=== PATIENT | female | born 1985 | race Caucasian/White ===

== ENCOUNTER 2022-06-02 00:50 | Inpatient (IN) | payer OTHER ==
[2022-06-02 01:57] LABS: BASO % 0.9 % (0-2.0); EOS % 1.6 % (0-4.5); HEMOGLOBIN 11.4 GM/dL (10.7-15.3); LYMPH % 28.5 % (8-40); MCH 26.9 pg (25.7-33.7); MCHC 34.6 g/dl (32.0-36.0); MEAN CELL VOLUME 77.6 fl (80-96); MEAN PLT VOLUME 8.5 fl (7.5-11.1); MONO % 6.6 % (3.8-10.2); NEUT % 62.4 % (42.8-82.8); PLATELET COUNT 374 10^3/uL (134-434); RBC 4.25 M/mm3 (3.60-5.2); RDW 14.6 % (11.6-15.6)
[2022-06-02 02:08] VITALS: BMI 25.7
[2022-06-02] MEDS ORDERED: CITRIC ACID/SODIUM CITRATE 30 ML UNIT-DOSE CUP PO ONE (02:08)
[2022-06-02] MEDS ORDERED: ELECTROLYTE-148 SOLN 500 ML IV ONE (02:08)
[2022-06-02] MEDS ORDERED: ELECTROLYTE-148 SOLN 1,000 ML IV SCH (02:15)
[2022-06-02 02:16] LABS: INR 0.95 (0.83-1.09)
[2022-06-02 02:18] LABS: ACTIVATED PTT 26.2 SECONDS (25.2-36.5)
[2022-06-02] MEDS ORDERED: DEXAMETHASONE SOD PHOSPHATE 4 MG/1 ML VIAL ONE (02:32)
[2022-06-02] MEDS ORDERED: KETOROLAC TROMETHAMINE 30 MG/1 ML VIAL ONE (02:32)
[2022-06-02] MEDS ORDERED: morphine SULFATE/PF 1 MG/2 ML (2cc Syringe - QUVA) ONE (02:32)
[2022-06-02] MEDS ORDERED: ONDANSETRON 4 MG/2 ML VIAL ONE (02:32)
[2022-06-02] MEDS ORDERED: FENTANYL CITRATE/PF 50 MCG/ML VIAL ONE (02:32)
[2022-06-02] MEDS ORDERED: IBUPROFEN 800 MG/8 ML IJ IVPB PRN (02:37)
[2022-06-02] MEDS ORDERED: ACETAMINOPHEN 325 MG TABLET (FP) PO PRN (02:37)
[2022-06-02] MEDS ORDERED: SENNOSIDES/DOCUSATE COMBO (SENNA PLUS) TABLET (UD) PO PRN (02:37)
[2022-06-02] MEDS ORDERED: METHYLERGONOVINE MALEATE 0.2 MG/1 ML AMP IM PRN (02:37)
[2022-06-02 02:39] LABS: CALCIUM 9.1 mg/dL (8.5-10.1)
[2022-06-02 02:40] LABS: BLOOD UREA NITROGEN 6.9 mg/dL (7-18)
[2022-06-02 02:43] LABS: CREATININE 0.5 mg/dL (0.55-1.3)
[2022-06-02] MEDS ORDERED: OXYTOCIN 30 UNITS in 0.9% NS 30 UNIT/500 ML INFUS.BAG IVPB ONE (02:43)
[2022-06-02] MEDS ORDERED: OXYTOCIN 20 UNITS in 0.9% NS 20 UNIT/1,000 ML INFUS.BAG IV SCH (02:45)
[2022-06-02] MEDS ORDERED: OXYTOCIN 10 UNITS/ML VIAL ONE ×2 (03:32)
[2022-06-02] MEDS ORDERED: ONDANSETRON 4 MG/2 ML VIAL IVPUSH PRN (03:56)
[2022-06-02] MEDS ORDERED: OXYTOCIN 20 UNITS in 0.9% NS 20 UNIT/1,000 ML INFUS.BAG IV ONE (04:47)
[2022-06-02] MEDS: FERROUS SO4 325 MG TABLET (FP) PO SCH ×2 (10:05→22:42)
[2022-06-02] MEDS: PRENATAL VITAMINS W/ FOLIC ACID TABLET (FP) PO SCH (10:05)
[2022-06-02] MEDS ORDERED: oxyCODONE HCL 5 MG TABLET PO PRN (14:37)
[2022-06-02] MEDS: SIMETHICONE 80 MG TAB.CHEW (FP) PO PRN (22:42)
[2022-06-02] MEDS: IBUPROFEN 600 MG TABLET (FP) PO PRN (22:42)
[2022-06-03] MEDS ORDERED: BISACODYL 10 MG SUPP.RECT RC PRN (02:37)
[2022-06-03] MEDS: IBUPROFEN 600 MG TABLET (FP) PO PRN ×3 (06:20→21:16)
[2022-06-03] MEDS: SIMETHICONE 80 MG TAB.CHEW (FP) PO PRN ×3 (06:20→18:44)
[2022-06-03 07:42] LABS: BASO % 0.7 % (0-2.0); EOS % 1.5 % (0-4.5); HEMATOCRIT 29.9 % (32.4-45.2); HEMOGLOBIN 10.2 GM/dL (10.7-15.3); LYMPH % 26.6 % (8-40); MCH 26.9 pg (25.7-33.7); MCHC 34.1 g/dl (32.0-36.0); MEAN CELL VOLUME 79.1 fl (80-96); MEAN PLT VOLUME 9.1 fl (7.5-11.1); MONO % 6.3 % (3.8-10.2); NEUT % 64.9 % (42.8-82.8); PLATELET COUNT 312 10^3/uL (134-434); RBC 3.77 M/mm3 (3.60-5.2); RDW 14.6 % (11.6-15.6); WHITE BLOOD COUNT 9.6 K/mm3 (4.0-10.0)
[2022-06-03] MEDS: FERROUS SO4 325 MG TABLET (FP) PO SCH ×2 (09:27→21:16)
[2022-06-03] MEDS: PRENATAL VITAMINS W/ FOLIC ACID TABLET (FP) PO SCH (09:27)
[2022-06-03] MEDS: oxyCODONE HCL 5 MG TABLET PO PRN ×2 (11:43→18:44)
[2022-06-03 21:11] VITALS: RESP 18
[2022-06-04] MEDS: SIMETHICONE 80 MG TAB.CHEW (FP) PO PRN (03:45)
[2022-06-04] MEDS: IBUPROFEN 600 MG TABLET (FP) PO PRN ×3 (03:45→23:27)
[2022-06-04] MEDS: FERROUS SO4 325 MG TABLET (FP) PO SCH ×2 (10:03→21:41)
[2022-06-04] MEDS: PRENATAL VITAMINS W/ FOLIC ACID TABLET (FP) PO SCH (10:03)
[2022-06-05 07:44] VITALS: BP 117/72; PULSE 77; TEMP 98.4
[2022-06-05] MEDS: PRENATAL VITAMINS W/ FOLIC ACID TABLET (FP) PO SCH (09:13)
[2022-06-05] MEDS: FERROUS SO4 325 MG TABLET (FP) PO SCH (09:13)
== END 2022-06-05 12:19 | disposition home or self-care (01) | DRG 788 ==
LOC: JDEL 00:50 → JLDR 01:15 → J3W 05:30
PROVIDERS: ADMIT Obstetrics & Gynecology; ATTEND Obstetrics & Gynecology
PROC: 10D00Z1 Extraction of Products of Conception, Low, Open Approach (ICD-10-PCS; principal; 2022-06-02)
DX: O34.211 Maternal care for low transverse scar from previous cesarean delivery (principal); O24.420 Gestational diabetes mellitus in childbirth, diet controlled; Z3A.38 38 weeks gestation of pregnancy; Z37.0 Single live birth
CPT/HCPCS: 36415; 80048; 85025; 85610; 85730; 86780; 86850; 86900; 86901; 88307-TC; C9803-CS; U0003; U0005